=== PATIENT | female | born 1930 | race African-American/Black ===

== ENCOUNTER 2018-12-25 18:15 | Inpatient (IN) | payer OTHER, MEDICAID ==
[~2018-12-25] VITALS: Ht 157.5 cm; Wt 41.7 kg
[2018-12-25] MEDS ORDERED: HALOPERIDOL LACTATE 5MG/ML VIAL IM ONE ×2 (18:45→22:45)
[2018-12-25 19:08] LABS: BASOPHILS % 0.4 % (0.0-2.0); EOSINOPHILS % 0.8 % (0.0-5.0); HEMATOCRIT. 42.8 % (36.0-48.0); HEMOGLOBIN. 13.8 g/dL (12.0-16.0); LYMPHOCYTES % 8.3 % (20.0-50.0); MEAN CORPUSCULAR HEMOGLOBIN 28.3 pg (28.0-32.0); MEAN CORPUSCULAR VOLUME 87.6 fL (81.0-99.0); MONOCYTES % 3.9 % (2.0-8.0); NEUTROPHILS % 86.6 % (40.0-76.0); PLATELET 310 x1000/uL (130-400); RED BLOOD CELL COUNT 4.89 mill/uL (4.2-5.4); RED CELL DISTRIBUTION WIDTH 14.8 % (11.6-14.6)
[2018-12-25 19:15] LABS: CHLORIDE 110 mEq/L (98-107); PROTHROMBIN TIME 10.1 sec (9.1-11.1)
[2018-12-25] MEDS ORDERED: SODIUM CHLORIDE 0.9% 1,000 ML IV ONE (21:00)
[2018-12-26 00:27] VITALS: BP 130/85
[2018-12-26 01:38] VITALS: BP 133/74
[2018-12-26] MEDS ORDERED: ACETAMINOPHEN 650MG/20.3ML UDC PO PRN (02:00)
[2018-12-26 04:00] VITALS: BP 124/65
[2018-12-26] MEDS ORDERED: OMEPRAZOLE 20MG CAPSULE EXTENDED RELEASE PO SCH (06:45)
[2018-12-26 12:00] VITALS: BP 148/87
[2018-12-26 14:12] VITALS: BP 148/87
== END 2018-12-26 14:30 | disposition home health service (06) | DRG 74 ==
LOC: ER 18:15 → 5WST 20:51 → EDBEDREQ 20:53 → ENRESERV 22:25
PROVIDERS: ADMIT Internal Medicine Pulmonary Disease; ATTEND Internal Medicine Pulmonary Disease
DX: G90.8 Other disorders of autonomic nervous system (principal); G96.0 Cerebrospinal fluid leak; I67.82 Cerebral ischemia; R29.6 Repeated falls; H90.5 Unspecified sensorineural hearing loss; F03.90 Unspecified dementia, unspecified severity, without behavioral disturbance, psychotic disturbance, mood disturbance, and anxiety; I10 Essential (primary) hypertension; W18.30XA Fall on same level, unspecified, initial encounter; Y93.89 Activity, other specified; Y92.89 Other specified places as the place of occurrence of the external cause; Y99.8 Other external cause status; Z87.891 Personal history of nicotine dependence
CPT/HCPCS: 36415; 71045; 93005; 97162; 99285; J1630; J7030